=== PATIENT | male | born 1970 | race African-American/Black ===

== ENCOUNTER 2019-03-09 19:01 | Inpatient (IN) | payer OTHER ==
[~2019-03-09] VITALS: Ht 180.3 cm; Wt 82.6 kg
[2019-03-09] MEDS ORDERED: SODIUM CHLORIDE 0.9% 1000ML BAG (SEPSIS BOLUS) IV ONE (19:45)
[2019-03-09] MEDS ORDERED: ENALAPRIL 2.5MG/2ML VIAL 2ML IV ONE (19:45)
[2019-03-09] MEDS ORDERED: INSULIN REGULAR (DRIP) 100 UNITS in SODIUM CHLORIDE 0.9% 100 ML IV ONE ×2 (19:45→21:15)
[2019-03-09] MEDS ORDERED: NICARDIPINE 40MG/200ML PREMIX 200 ML IV STA (19:49)
[2019-03-09] MEDS ORDERED: VECURONIUM BROMIDE 10 MG/VIAL IV ONE (19:57)
[2019-03-09] MEDS ORDERED: SODIUM CHLORIDE 0.9% 10ML VIAL ONE (19:57)
[2019-03-09] MEDS ORDERED: ETOMIDATE 2MG/ML 10ML VIAL IV ONE (19:57)
[2019-03-09] MEDS ORDERED: PROPOFOL 10MG/ML 100ML 100 ML IV ONE (20:00)
[2019-03-09] MEDS ORDERED: MIDAZOLAM HCL 50 MG in DEXTROSE 5% WATER 40 ML IV ONE (20:00)
[2019-03-09] MEDS ORDERED: ROCURONIUM BROMIDE 10MG/ML VIAL 5ML IV ONE (20:00)
[2019-03-09 20:11] LABS: HEMATOCRIT. 42.2 % (42.0-52.0); HEMOGLOBIN. 12.6 g/dL (14.0-18.0); MEAN CORPUSCULAR HEMOGLOBIN 32.6 pg (28.0-32.0); MEAN PLATELET VOLUME 9.9 fl (7.4-10.4); PLATELET 243 x1000/uL (130-400); RED BLOOD CELL COUNT 3.87 mill/uL (4.7-6.1); RED CELL DISTRIBUTION WIDTH 15.7 % (11.6-14.6)
[2019-03-09 20:16] LABS: CHLORIDE 84 mEq/L (98-107); PROTHROMBIN TIME 10.4 sec (9.6-11.0)
[2019-03-09 20:22] LABS: ETHANOL BLOOD < 10 mg/dL
[2019-03-09 20:27] LABS: BETA HYDROXYBUTYRATE 7.5 mMol/L (0.0-0.3)
[2019-03-09 20:46] LABS: PLATELET ESTIMATE NORMAL
[2019-03-09 20:53] LABS: BG BASE EXCESS -17.2 mmol/L (-2.0-2.0); BG CARBOXYHEMOGLOBIN 0.5 % (0.5-1.5); BG FRACTION INSPIRED OXYGEN 50; BG METHEMOGLOBIN 0.5 % (0.0-1.5); BG PH 7.085 (7.350-7.450); BG PO2 210.9 mmHg (75.0-100.0); BG SAMPLE SITE RIGHT RADIAL; BG TIDAL VOLUME(mL) 500 mL; BG VENT MODE VENT - A/C; BG VENT RATE 16 set
[2019-03-09] MEDS ORDERED: SODIUM CHLORIDE 0.9% 1,000 ML IV SCH (21:18)
[2019-03-09] MEDS ORDERED: IPRATROPIUM/ALBUTEROL 0.5-3(2.5)MG/3ML NEB INH PRN (21:30)
[2019-03-09] MEDS ORDERED: INSULIN REGULAR (DRIP) 100 UNITS in SODIUM CHLORIDE 0.9% 100 ML IV SCH (21:30)
[2019-03-09] MEDS ORDERED: PIPERACILLIN/TAZ 3.375G PREMIX 50 ML IV ONE (21:30)
[2019-03-09] MEDS ORDERED: ONDANSETRON HCL 4MG/2ML INJ IV PRN (21:30)
[2019-03-09 22:11] LABS: CLARITY URINE CLEAR (CLEAR); COLOR URINE YELLOW (YELLOW); KETONES URINE 2+ (NEGATIVE); LEUKOCYTE ESTERASE URINE NEGATIVE (NEGATIVE); NITRITE URINE NEGATIVE (NEGATIVE); OCCULT BLOOD URINE 2+ (NEGATIVE); PROTEIN URINE 3+ (NEGATIVE); SPECIFIC GRAVITY URINE 1.021 (1.005-1.030); UROBILINOGEN URINE 0.2 E.U./dL (0.2-1.0)
[2019-03-09 22:17] LABS: PHOSPHORUS 8.6 mg/dL (2.5-4.9)
[2019-03-09 22:21] LABS: *AMPHETAMINES SCREEN URINE NEGATIVE (NEGATIVE)
[2019-03-09 22:22] LABS: *BARBITURATES SCREEN URINE NEGATIVE (NEGATIVE); *BENZODIAZEPINES SCREEN URINE NEGATIVE (NEGATIVE); *COCAINE SCREEN URINE NEGATIVE (NEGATIVE); CANNABINOID URINE SCREEN PRESUMTIVE POSITIVE (NEGATIVE); METHADONE URINE SCREEN NEGATIVE (NEGATIVE); OPIATES URINE SCREEN NEGATIVE (NEGATIVE); PHENCYCLIDINE URINE SCREEN NEGATIVE (NEGATIVE)
[2019-03-10] VITALS (34 sets, daily range): BP systolic 117–159; BP diastolic 57–93
[2019-03-10] MEDS ORDERED: PIPERACILLIN/TAZ 2.25G PREMIX 50 ML IV NR (01:00)
[2019-03-10] MEDS ORDERED: VANCOMYCIN 1500MG in DEXTROSE 5% WATER 250ML IV NR (02:00)
[2019-03-10 03:52] LABS: HEMATOCRIT. 34.8 % (42.0-52.0); HEMOGLOBIN. 11.5 g/dL (14.0-18.0); MEAN CORPUSCULAR HEMOGLOBIN 32.1 pg (28.0-32.0); MEAN CORPUSCULAR VOLUME 97.2 fL (80.0-94.0); MEAN PLATELET VOLUME 9.5 fl (7.4-10.4); PLATELET 247 x1000/uL (130-400); RED BLOOD CELL COUNT 3.58 mill/uL (4.7-6.1); RED CELL DISTRIBUTION WIDTH 14.2 % (11.6-14.6)
[2019-03-10 04:08] LABS: CREATINE KINASE MB FRACTION 16.4 ng/mL (0.5-3.6)
[2019-03-10 05:36] LABS: PLATELET ESTIMATE NORMAL
[2019-03-10] MEDS ORDERED: PIPERACILLIN/TAZ 3.375G PREMIX 50 ML IV SCH (06:00)
[2019-03-10] MEDS: SODIUM CHL 0.9% + KCL 20MEQ/L 1,000 ML IV SCH ×3 (06:30→21:39)
[2019-03-10] MEDS ORDERED: INSULIN R (DRIP) 100 UNITS in SODIUM CHLORIDE 0.9% 100ML IV ONE (06:30)
[2019-03-10] MEDS ORDERED: NICARDIPINE 40MG/200ML PREMIX 200 ML IV SCH ×2 (07:15→08:15)
[2019-03-10] MEDS ORDERED: PIPERACILLIN/TAZ 2.25G PREMIX 50 ML IV SCH (09:00)
[2019-03-10] MEDS ORDERED: NICARDIPINE 50 MG in SODIUM CHLORIDE 0.9% 230 ML IV SCH (09:00)
[2019-03-10] MEDS: IPRATROPIUM/ALBUTEROL 0.5-3(2.5)MG/3ML NEB HHN SCH ×3 (09:10→21:02)
[2019-03-10] MEDS ORDERED: PROPOFOL 10MG/ML 100ML 100 ML IV SCH (09:14)
[2019-03-10] MEDS: BLOOD SUGAR DIAGNOSTIC STRIP TEST SCH ×14 (09:30→23:17)
[2019-03-10] MEDS ORDERED: DEXTROSE 50% WATER 50ML SYRINGE IV PRN ×2 (09:30)
[2019-03-10 09:37] LABS: BG BASE EXCESS -0.3 mmol/L (-2.0-2.0); BG CARBOXYHEMOGLOBIN 0.4 % (0.5-1.5); BG DEOXYHEMOGLOBIN 1.1 % (0.0-5.0); BG FRACTION INSPIRED OXYGEN 50; BG METHEMOGLOBIN 0.4 % (0.0-1.5); BG OXYGEN SATURATION 98.9 % (92.0-98.5); BG OXYHEMOGLOBIN 98.1 % (94.0-97.0); BG PCO2 33.1 mmHg (35.0-45.0); BG PH 7.459 (7.350-7.450); BG PO2 147.3 mmHg (75.0-100.0); BG SAMPLE SITE RIGHT RADIAL; BG TIDAL VOLUME(mL) 500 mL; BG TOTAL HEMOGLOBIN 11.9 g/dL (12.0-18.0); BG VENT MODE VENT - A/C; BG VENT RATE 16 set
[2019-03-10] MEDS: INSULIN REGULAR (DRIP) 100 UNITS in SODIUM CHLORIDE 0.9% 99 ML IV SCH (12:31)
[2019-03-10] MEDS ORDERED: LIDOCAINE HCL 1% 20ML VIAL (Pyxis) INJ ONE (12:35)
[2019-03-10 13:21] LABS: HEPATITIS B SURFACE AB 4.9 mIU/mL
[2019-03-10 13:32] LABS: HEPATITIS B SURFACE ANTIGEN NEGATIVE
[2019-03-10] MEDS ORDERED: MIDAZOLAM HCL 100 MG in DEXT 5% WATER 80 ML IV PRN (13:45)
[2019-03-10] MEDS: PANTOPRAZOLE SODIUM 40 MG/VIAL IV SCH (16:00)
[2019-03-10] MEDS: PIPERACILLIN/TAZ 2.25G PREMIX 50 ML IV SCH (21:18)
[2019-03-10] MEDS: FENTANYL CITRATE/PF 500 MCG in SODIUM CHLORIDE 0.9% 40 ML IV PRN (22:00)
[2019-03-11] VITALS (71 sets, daily range): BP systolic 107–170; BP diastolic 59–94
[2019-03-11] MEDS: BLOOD SUGAR DIAGNOSTIC STRIP TEST SCH ×12 (00:05→18:03)
[2019-03-11] MEDS: IPRATROPIUM/ALBUTEROL 0.5-3(2.5)MG/3ML NEB HHN SCH ×4 (01:44→21:01)
[2019-03-11] MEDS: PIPERACILLIN/TAZ 2.25G PREMIX 50 ML IV SCH ×4 (02:44→20:38)
[2019-03-11] MEDS: SODIUM CHL 0.9% + KCL 20MEQ/L 1,000 ML IV SCH (04:47)
[2019-03-11 05:56] LABS: BASOPHILS % 0.6 % (0.0-2.0); EOSINOPHILS % 0.1 % (0.0-5.0); HEMATOCRIT. 29.9 % (42.0-52.0); HEMOGLOBIN. 10.1 g/dL (14.0-18.0); LYMPHOCYTES % 17.4 % (20.0-50.0); MEAN CORPUSCULAR HEMOGLOBIN 32.7 pg (28.0-32.0); MEAN CORPUSCULAR VOLUME 96.9 fL (80.0-94.0); MEAN PLATELET VOLUME 9.1 fl (7.4-10.4); MONOCYTES % 6.9 % (2.0-8.0); PLATELET 162 x1000/uL (130-400); RED BLOOD CELL COUNT 3.09 mill/uL (4.7-6.1); RED CELL DISTRIBUTION WIDTH 14.6 % (11.6-14.6)
[2019-03-11 08:24] LABS: BG BASE EXCESS -6.6 mmol/L (-2.0-2.0); BG CARBOXYHEMOGLOBIN 0.3 % (0.5-1.5); BG DEOXYHEMOGLOBIN 1.5 % (0.0-5.0); BG FRACTION INSPIRED OXYGEN 40; BG HCO3 ACT 17.9 mmol/L (22.0-26.0); BG METHEMOGLOBIN 0.1 % (0.0-1.5); BG OXYGEN SATURATION 98.5 % (92.0-98.5); BG OXYHEMOGLOBIN 98.1 % (94.0-97.0); BG PCO2 32.2 mmHg (35.0-45.0); BG PH 7.364 (7.350-7.450); BG PO2 132.4 mmHg (75.0-100.0); BG SAMPLE SITE RIGHT RADIAL; BG TIDAL VOLUME(mL) 500 mL; BG TOTAL HEMOGLOBIN 9.3 g/dL (12.0-18.0); BG VENT MODE VENT - A/C; BG VENT RATE 16 set
[2019-03-11] MEDS: PANTOPRAZOLE SODIUM 40 MG/VIAL IV SCH (08:33)
[2019-03-11] MEDS: DEXT 5%/0.45% NACL 1000ML 1,000 ML IV SCH ×2 (08:34→22:19)
[2019-03-11] MEDS: INSULIN REGULAR (DRIP) 100 UNITS in SODIUM CHLORIDE 0.9% 99 ML IV SCH (08:53)
[2019-03-11] MEDS: INSULIN GLARGINE UD 100 UNITS/ML SYR SUBCUT SCH (10:15)
[2019-03-11] MEDS: DILTIAZEM HCL 60MG TABLET NG SCH ×4 (12:00→18:14)
[2019-03-11] MEDS: FENTANYL CITRATE/PF 500 MCG in SODIUM CHLORIDE 0.9% 40 ML IV PRN ×2 (12:08→18:48)
[2019-03-11] MEDS ORDERED: BLOOD SUGAR DIAGNOSTIC STRIP TEST SCH (20:00)
[2019-03-11] MEDS ORDERED: VANCOMYCIN 500 MG PREMIX 100 ML IV NR (21:45)
[2019-03-12] VITALS (65 sets, daily range): BP systolic 70–236; BP diastolic 25–131
[2019-03-12] MEDS: IPRATROPIUM/ALBUTEROL 0.5-3(2.5)MG/3ML NEB HHN SCH ×4 (01:18→20:00)
[2019-03-12] MEDS: DILTIAZEM HCL 60MG TABLET NG SCH ×4 (01:45→17:41)
[2019-03-12] MEDS: FENTANYL CITRATE/PF 500 MCG in SODIUM CHLORIDE 0.9% 40 ML IV PRN ×2 (01:48→07:07)
[2019-03-12] MEDS ORDERED: BLOOD SUGAR DIAGNOSTIC STRIP TEST SCH ×2 (02:00)
[2019-03-12] MEDS: PIPERACILLIN/TAZ 2.25G PREMIX 50 ML IV SCH ×4 (02:19→21:51)
[2019-03-12] MEDS: BLOOD SUGAR DIAGNOSTIC STRIP TEST SCH ×14 (03:11→21:52)
[2019-03-12 05:51] LABS: HEMATOCRIT. 28.8 % (42.0-52.0); HEMOGLOBIN. 9.5 g/dL (14.0-18.0); MEAN CORPUSCULAR HEMOGLOBIN 32.4 pg (28.0-32.0); MEAN CORPUSCULAR VOLUME 97.9 fL (80.0-94.0); MEAN PLATELET VOLUME 9.1 fl (7.4-10.4); PLATELET 164 x1000/uL (130-400); RED BLOOD CELL COUNT 2.94 mill/uL (4.7-6.1); RED CELL DISTRIBUTION WIDTH 14.8 % (11.6-14.6)
[2019-03-12] MEDS: INSULIN REGULAR (DRIP) 100 UNITS in SODIUM CHLORIDE 0.9% 99 ML IV SCH (07:25)
[2019-03-12] MEDS: PANTOPRAZOLE SODIUM 40 MG/VIAL IV SCH (09:04)
[2019-03-12 09:23] LABS: NUCLEATED RED BLOOD CELLS 1 /100 WBC; PLATELET ESTIMATE NORMAL
[2019-03-12 09:49] LABS: BG BASE EXCESS -1.2 mmol/L (-2.0-2.0); BG CARBOXYHEMOGLOBIN 0.1 % (0.5-1.5); BG DEOXYHEMOGLOBIN 1.4 % (0.0-5.0); BG FRACTION INSPIRED OXYGEN 40; BG METHEMOGLOBIN 0.1 % (0.0-1.5); BG OXYGEN SATURATION 98.6 % (92.0-98.5); BG OXYHEMOGLOBIN 98.4 % (94.0-97.0); BG PCO2 42.2 mmHg (35.0-45.0); BG PH 7.373 (7.350-7.450); BG PO2 140.1 mmHg (75.0-100.0); BG SAMPLE SITE RIGHT RADIAL; BG TIDAL VOLUME(mL) 500 mL; BG TOTAL HEMOGLOBIN 9.9 g/dL (12.0-18.0); BG VENT MODE VENT - A/C; BG VENT RATE 16 set
[2019-03-12] MEDS: INSULIN GLARGINE UD 100 UNITS/ML SYR SUBCUT SCH (11:04)
[2019-03-12] MEDS ORDERED: HYDROMORPHONE HCL/PF 2MG/ML CPJ IV NR (12:00)
[2019-03-12] MEDS ORDERED: RACEPINEPHRINE 2.25% 0.5ML NEB VIAL ONE (12:07)
[2019-03-12] MEDS ORDERED: RACEPINEPHRINE 2.25% 0.5ML NEB VIAL HHN PRN (12:15)
[2019-03-12] MEDS ORDERED: RACEPINEPHRINE 2.25% 0.5ML NEB VIAL HHN NR (12:15)
[2019-03-12] MEDS: LORAZEPAM 2MG/ML CPJ IV PRN ×3 (12:26→21:51)
[2019-03-12 13:19] LABS: BG BASE EXCESS -2.8 mmol/L (-2.0-2.0); BG CARBOXYHEMOGLOBIN 0.2 % (0.5-1.5); BG DEOXYHEMOGLOBIN 3.7 % (0.0-5.0); BG FRACTION INSPIRED OXYGEN 100; BG HCO3 ACT 22.4 mmol/L (22.0-26.0); BG METHEMOGLOBIN 0.5 % (0.0-1.5); BG OXYGEN SATURATION 96.3 % (92.0-98.5); BG OXYHEMOGLOBIN 95.6 % (94.0-97.0); BG PCO2 40.3 mmHg (35.0-45.0); BG PH 7.362 (7.350-7.450); BG PO2 86.1 mmHg (75.0-100.0); BG SAMPLE SITE RIGHT RADIAL; BG TOTAL HEMOGLOBIN 10.5 g/dL (12.0-18.0); BG VENT MODE MASK - NRB
[2019-03-12] MEDS: DILTIAZEM HCL 30MG TABLET NG SCH ×2 (14:45→14:47)
[2019-03-12] MEDS: FLUCONAZOLE 100MG TABLET PO SCH (14:52)
[2019-03-12] MEDS ORDERED: VANCOMYCIN 500 MG PREMIX 100 ML IV NR (15:00)
[2019-03-12] MEDS ORDERED: DEXTROSE 50% WATER 50ML SYRINGE IV PRN (15:30)
[2019-03-12] MEDS: NICARDIPINE 50 MG in SODIUM CHLORIDE 0.9% 230 ML IV SCH ×2 (16:48→22:13)
[2019-03-12] MEDS ORDERED: NICARDIPINE 40MG/200ML PREMIX 200 ML IV SCH (17:00)
[2019-03-12] MEDS ORDERED: HYDRALAZINE 20MG/ML VIAL IV NR (17:30)
[2019-03-12] MEDS: ASPIRIN 81MG TABLET NG SCH (17:41)
[2019-03-12] MEDS: NITROGLYCERIN OINT 1GM/INCH UDPKT TD SCH ×2 (17:50→21:52)
[2019-03-12] MEDS: INSULIN LISPRO 100 UNITS/ML SUBCUT SCH ×2 (18:15→21:53)
[2019-03-12 18:48] LABS: BG BASE EXCESS -3.8 mmol/L (-2.0-2.0); BG CARBOXYHEMOGLOBIN 0.3 % (0.5-1.5); BG DEOXYHEMOGLOBIN 0.8 % (0.0-5.0); BG FRACTION INSPIRED OXYGEN 100; BG HCO3 ACT 19.9 mmol/L (22.0-26.0); BG METHEMOGLOBIN 0.3 % (0.0-1.5); BG OXYGEN SATURATION 99.2 % (92.0-98.5); BG OXYHEMOGLOBIN 98.6 % (94.0-97.0); BG PCO2 31.5 mmHg (35.0-45.0); BG PH 7.419 (7.350-7.450); BG PO2 172.7 mmHg (75.0-100.0); BG SAMPLE SITE RIGHT RADIAL; BG TOTAL HEMOGLOBIN 10.7 g/dL (12.0-18.0); BG VENT MODE MASK - NRB
[2019-03-12] MEDS: RISPERIDONE 1MG TABLET PO SCH (21:52)
[2019-03-12] MEDS: ACETAMINOPHEN 650MG/20.3ML UDC PO PRN (23:23)
[2019-03-13] VITALS (58 sets, daily range): BP systolic 94–191; BP diastolic 50–112
[2019-03-13] MEDS: DILTIAZEM HCL 60MG TABLET NG SCH ×5 (01:06→18:18)
[2019-03-13] MEDS: LORAZEPAM 2MG/ML CPJ IV PRN (01:28)
[2019-03-13] MEDS: IPRATROPIUM/ALBUTEROL 0.5-3(2.5)MG/3ML NEB HHN SCH ×4 (01:52→20:58)
[2019-03-13] MEDS: PIPERACILLIN/TAZ 2.25G PREMIX 50 ML IV SCH ×4 (04:07→20:01)
[2019-03-13 05:41] LABS: BASOPHILS % 0.3 % (0.0-2.0); EOSINOPHILS % 0.8 % (0.0-5.0); HEMATOCRIT. 27.7 % (42.0-52.0); HEMOGLOBIN. 9.2 g/dL (14.0-18.0); LYMPHOCYTES % 12.4 % (20.0-50.0); MEAN CORPUSCULAR HEMOGLOBIN 32.5 pg (28.0-32.0); MEAN CORPUSCULAR VOLUME 98.1 fL (80.0-94.0); MEAN PLATELET VOLUME 9.5 fl (7.4-10.4); MONOCYTES % 6.3 % (2.0-8.0); NEUTROPHILS % 80.2 % (40.0-76.0); PLATELET 145 x1000/uL (130-400); RED BLOOD CELL COUNT 2.82 mill/uL (4.7-6.1); RED CELL DISTRIBUTION WIDTH 14.8 % (11.6-14.6)
[2019-03-13] MEDS: NITROGLYCERIN OINT 1GM/INCH UDPKT TD SCH ×3 (06:50→21:22)
[2019-03-13] MEDS: BLOOD SUGAR DIAGNOSTIC STRIP TEST SCH ×13 (08:20→23:55)
[2019-03-13 08:21] LABS: BG BASE EXCESS -12.1 mmol/L (-2.0-2.0); BG CARBOXYHEMOGLOBIN 0.3 % (0.5-1.5); BG DEOXYHEMOGLOBIN 0.5 % (0.0-5.0); BG FRACTION INSPIRED OXYGEN 99.8; BG HCO3 ACT 13.3 mmol/L (22.0-26.0); BG METHEMOGLOBIN 0.3 % (0.0-1.5); BG OXYGEN SATURATION 99.5 % (92.0-98.5); BG OXYHEMOGLOBIN 98.9 % (94.0-97.0); BG PCO2 28.7 mmHg (35.0-45.0); BG PH 7.284 (7.350-7.450); BG PO2 198.4 mmHg (75.0-100.0); BG SAMPLE SITE RIGHT BRACHIAL; BG TOTAL HEMOGLOBIN 9.2 g/dL (12.0-18.0); BG VENT MODE MASK - NRB
[2019-03-13] MEDS ORDERED: DEXTROSE 50% WATER 50ML SYRINGE IV PRN ×3 (08:45→17:45)
[2019-03-13] MEDS ORDERED: SODIUM BICARBONATE 8.4% 1 MEQ/ML 50ML SYR IV NR (08:45)
[2019-03-13] MEDS ORDERED: INSULIN REGULAR (DRIP) 100 UNITS in SODIUM CHLORIDE 0.9% 99 ML IV PRN (09:00)
[2019-03-13] MEDS: FLUCONAZOLE 100MG TABLET PO SCH (09:19)
[2019-03-13] MEDS: INSULIN GLARGINE UD 100 UNITS/ML SYR SUBCUT SCH (09:19)
[2019-03-13] MEDS: ASPIRIN 81MG TABLET NG SCH (09:20)
[2019-03-13] MEDS: PANTOPRAZOLE 40MG DR TABLET PO SCH (11:30)
[2019-03-13] MEDS: NICARDIPINE 50 MG in SODIUM CHLORIDE 0.9% 230 ML IV SCH ×2 (13:00→20:01)
[2019-03-13] MEDS ORDERED: INSULIN GLARGINE UD 100 UNITS/ML SYR SUBCUT NR (18:00)
[2019-03-13] MEDS: INSULIN LISPRO 100 UNITS/ML SUBCUT SCH ×3 (18:00→23:55)
[2019-03-13] MEDS: RISPERIDONE 1MG TABLET PO SCH (20:06)
[2019-03-13] MEDS: ACETAMINOPHEN 650MG/20.3ML UDC PO PRN (20:28)
[2019-03-13] MEDS ORDERED: VANCOMYCIN 500 MG PREMIX 100 ML IV SCH (21:00)
[2019-03-14] VITALS (87 sets, daily range): BP systolic 93–174; BP diastolic 51–112
[2019-03-14] MEDS: PIPERACILLIN/TAZ 2.25G PREMIX 50 ML IV SCH ×4 (02:09→20:53)
[2019-03-14] MEDS: IPRATROPIUM/ALBUTEROL 0.5-3(2.5)MG/3ML NEB HHN SCH ×4 (03:27→21:00)
[2019-03-14] MEDS: NICARDIPINE 50 MG in SODIUM CHLORIDE 0.9% 230 ML IV SCH ×2 (04:56→16:57)
[2019-03-14] MEDS: BLOOD SUGAR DIAGNOSTIC STRIP TEST SCH ×4 (05:32→23:48)
[2019-03-14] MEDS: DILTIAZEM HCL 60MG TABLET NG SCH ×4 (05:37→23:33)
[2019-03-14] MEDS: NITROGLYCERIN OINT 1GM/INCH UDPKT TD SCH ×3 (05:38→21:45)
[2019-03-14] MEDS: INSULIN LISPRO 100 UNITS/ML SUBCUT SCH ×8 (05:39→23:54)
[2019-03-14 05:43] LABS: BASOPHILS % 0.4 % (0.0-2.0); EOSINOPHILS % 1.1 % (0.0-5.0); HEMATOCRIT. 26.9 % (42.0-52.0); LYMPHOCYTES % 11.3 % (20.0-50.0); MEAN CORPUSCULAR HEMOGLOBIN 32.8 pg (28.0-32.0); MEAN CORPUSCULAR VOLUME 97.7 fL (80.0-94.0); MEAN PLATELET VOLUME 9.4 fl (7.4-10.4); MONOCYTES % 6.3 % (2.0-8.0); NEUTROPHILS % 80.9 % (40.0-76.0); PLATELET 176 x1000/uL (130-400); RED BLOOD CELL COUNT 2.76 mill/uL (4.7-6.1); RED CELL DISTRIBUTION WIDTH 14.9 % (11.6-14.6)
[2019-03-14] MEDS ORDERED: POTASSIUM CHLORIDE 20MEQ/PACKET PO NR ×2 (08:15→16:00)
[2019-03-14] MEDS: FLUCONAZOLE 100MG TABLET PO SCH (09:32)
[2019-03-14] MEDS: ASPIRIN 81MG TABLET NG SCH (09:32)
[2019-03-14] MEDS: PANTOPRAZOLE 40MG DR TABLET PO SCH (09:32)
[2019-03-14 09:57] LABS: BG BASE EXCESS 3.5 mmol/L (-2.0-2.0); BG CARBOXYHEMOGLOBIN 0.3 % (0.5-1.5); BG DEOXYHEMOGLOBIN 4.3 % (0.0-5.0); BG HCO3 ACT 26.1 mmol/L (22.0-26.0); BG METHEMOGLOBIN 0.5 % (0.0-1.5); BG OXYGEN SATURATION 95.7 % (92.0-98.5); BG OXYHEMOGLOBIN 94.9 % (94.0-97.0); BG PH 7.529 (7.350-7.450); BG PO2 74.5 mmHg (75.0-100.0); BG SAMPLE SITE RIGHT BRACHIAL; BG TOTAL HEMOGLOBIN 9.4 g/dL (12.0-18.0); BG VENT MODE NASAL CANNULA
[2019-03-14] MEDS: LORAZEPAM 2MG/ML CPJ IV PRN ×2 (10:16→15:50)
[2019-03-14] MEDS ORDERED: LORAZEPAM 2MG/ML CPJ IM SCH (10:45)
[2019-03-14] MEDS ORDERED: LORAZEPAM 2MG/ML CPJ IV PRN (10:45)
[2019-03-14] MEDS ORDERED: POTASSIUM CHLORIDE 20MEQ TABLET SR PO SCH (16:00)
[2019-03-14] MEDS: RISPERIDONE 1MG TABLET PO SCH (20:53)
[2019-03-14] MEDS: INSULIN GLARGINE UD 100 UNITS/ML SYR SUBCUT SCH (21:48)
[2019-03-15] VITALS (92 sets, daily range): BP systolic 116–198; BP diastolic 54–144
[2019-03-15] MEDS: NICARDIPINE 50 MG in SODIUM CHLORIDE 0.9% 230 ML IV SCH ×2 (00:39→14:36)
[2019-03-15] MEDS: PIPERACILLIN/TAZ 2.25G PREMIX 50 ML IV SCH ×4 (01:34→19:31)
[2019-03-15] MEDS: IPRATROPIUM/ALBUTEROL 0.5-3(2.5)MG/3ML NEB HHN SCH ×4 (01:40→19:48)
[2019-03-15 04:58] LABS: BASOPHILS % 1.2 % (0.0-2.0); EOSINOPHILS % 2.1 % (0.0-5.0); HEMATOCRIT. 27.3 % (42.0-52.0); HEMOGLOBIN. 9.3 g/dL (14.0-18.0); MEAN CORPUSCULAR HEMOGLOBIN 32.9 pg (28.0-32.0); MEAN CORPUSCULAR VOLUME 96.9 fL (80.0-94.0); MONOCYTES % 8.5 % (2.0-8.0); NEUTROPHILS % 71.2 % (40.0-76.0); PLATELET 212 x1000/uL (130-400); RED BLOOD CELL COUNT 2.82 mill/uL (4.7-6.1); RED CELL DISTRIBUTION WIDTH 14.7 % (11.6-14.6)
[2019-03-15] MEDS: NITROGLYCERIN OINT 1GM/INCH UDPKT TD SCH ×3 (05:18→22:02)
[2019-03-15] MEDS: DILTIAZEM HCL 60MG TABLET NG SCH ×3 (05:19→19:04)
[2019-03-15] MEDS: BLOOD SUGAR DIAGNOSTIC STRIP TEST SCH ×4 (05:52→23:34)
[2019-03-15] MEDS: INSULIN LISPRO 100 UNITS/ML SUBCUT SCH ×7 (06:00→23:34)
[2019-03-15] MEDS ORDERED: POTASSIUM CHLORIDE 20MEQ/PACKET PO SCH (06:00)
[2019-03-15] MEDS: ASPIRIN 81MG TABLET NG SCH (08:55)
[2019-03-15] MEDS: PANTOPRAZOLE 40MG DR TABLET PO SCH (08:55)
[2019-03-15] MEDS: LOSARTAN POTASSIUM 100 MG TABLET PO SCH (10:19)
[2019-03-15] MEDS: METOPROLOL TARTRATE 50MG TABLET PO SCH (20:45)
[2019-03-15] MEDS: RISPERIDONE 1MG TABLET PO SCH (20:45)
[2019-03-15] MEDS ORDERED: VANCOMYCIN 500 MG PREMIX 100 ML IV NR (21:00)
[2019-03-15] MEDS: LORAZEPAM 2MG/ML CPJ IV PRN (21:45)
[2019-03-15] MEDS: INSULIN GLARGINE UD 100 UNITS/ML SYR SUBCUT SCH (22:03)
[2019-03-15] MEDS: HALOPERIDOL LACTATE 5MG/ML VIAL IM PRN (22:51)
[2019-03-16] VITALS (80 sets, daily range): BP systolic 132–185; BP diastolic 56–117
[2019-03-16] MEDS: DILTIAZEM HCL 60MG TABLET NG SCH ×5 (00:35→23:40)
[2019-03-16] MEDS: LORAZEPAM 2MG/ML CPJ IV PRN ×2 (01:38→21:14)
[2019-03-16] MEDS: PIPERACILLIN/TAZ 2.25G PREMIX 50 ML IV SCH ×4 (01:40→20:20)
[2019-03-16] MEDS: IPRATROPIUM/ALBUTEROL 0.5-3(2.5)MG/3ML NEB HHN SCH ×4 (01:55→19:56)
[2019-03-16] MEDS: CLONIDINE 0.1MG TABLET PO PRN ×2 (03:53→13:40)
[2019-03-16] MEDS: NICARDIPINE 50 MG in SODIUM CHLORIDE 0.9% 230 ML IV SCH ×3 (03:59→21:00)
[2019-03-16 05:32] LABS: BASOPHILS % 0.9 % (0.0-2.0); EOSINOPHILS % 2.4 % (0.0-5.0); HEMATOCRIT. 28.4 % (42.0-52.0); HEMOGLOBIN. 9.4 g/dL (14.0-18.0); LYMPHOCYTES % 15.4 % (20.0-50.0); MEAN CORPUSCULAR HEMOGLOBIN 32.3 pg (28.0-32.0); MEAN CORPUSCULAR VOLUME 97.5 fL (80.0-94.0); MEAN PLATELET VOLUME 9.1 fl (7.4-10.4); MONOCYTES % 8.3 % (2.0-8.0); PLATELET 230 x1000/uL (130-400); RED BLOOD CELL COUNT 2.91 mill/uL (4.7-6.1); RED CELL DISTRIBUTION WIDTH 14.8 % (11.6-14.6)
[2019-03-16] MEDS: BLOOD SUGAR DIAGNOSTIC STRIP TEST SCH ×4 (05:48→23:40)
[2019-03-16] MEDS: NITROGLYCERIN OINT 1GM/INCH UDPKT TD SCH ×3 (05:58→21:49)
[2019-03-16] MEDS: INSULIN LISPRO 100 UNITS/ML SUBCUT SCH ×7 (05:59→23:46)
[2019-03-16] MEDS: PANTOPRAZOLE 40MG DR TABLET PO SCH (08:13)
[2019-03-16] MEDS: METOPROLOL TARTRATE 50MG TABLET PO SCH ×2 (08:14→20:21)
[2019-03-16] MEDS: LOSARTAN POTASSIUM 100 MG TABLET PO SCH (08:14)
[2019-03-16] MEDS: ASPIRIN 81MG TABLET NG SCH (08:14)
[2019-03-16] MEDS: HYDRALAZINE HCL 25MG TABLET PO SCH ×2 (15:59→23:40)
[2019-03-16] MEDS: RISPERIDONE 1MG TABLET PO SCH (21:14)
[2019-03-16] MEDS: INSULIN GLARGINE UD 100 UNITS/ML SYR SUBCUT SCH (21:49)
[2019-03-16] MEDS: CLONIDINE 0.1MG TABLET PO SCH (21:49)
[2019-03-17] VITALS (60 sets, daily range): BP systolic 135–192; BP diastolic 77–109
[2019-03-17] MEDS: HALOPERIDOL LACTATE 5MG/ML VIAL IM PRN ×3 (01:01→19:33)
[2019-03-17] MEDS: IPRATROPIUM/ALBUTEROL 0.5-3(2.5)MG/3ML NEB HHN SCH ×2 (02:01→21:12)
[2019-03-17] MEDS: PIPERACILLIN/TAZ 2.25G PREMIX 50 ML IV SCH ×4 (02:36→20:17)
[2019-03-17] MEDS: CLONIDINE 0.1MG TABLET PO PRN ×2 (04:25→19:41)
[2019-03-17 05:31] LABS: BASOPHILS % 0.6 % (0.0-2.0); EOSINOPHILS % 4.2 % (0.0-5.0); HEMATOCRIT. 27.2 % (42.0-52.0); HEMOGLOBIN. 9.3 g/dL (14.0-18.0); MEAN CORPUSCULAR HEMOGLOBIN 33.5 pg (28.0-32.0); MEAN CORPUSCULAR VOLUME 97.4 fL (80.0-94.0); MEAN PLATELET VOLUME 8.6 fl (7.4-10.4); MONOCYTES % 10.2 % (2.0-8.0); PLATELET 257 x1000/uL (130-400); RED BLOOD CELL COUNT 2.79 mill/uL (4.7-6.1); RED CELL DISTRIBUTION WIDTH 14.7 % (11.6-14.6)
[2019-03-17] MEDS: BLOOD SUGAR DIAGNOSTIC STRIP TEST SCH ×3 (05:46→17:02)
[2019-03-17] MEDS: NITROGLYCERIN OINT 1GM/INCH UDPKT TD SCH ×3 (05:47→21:48)
[2019-03-17] MEDS: CLONIDINE 0.1MG TABLET PO SCH ×3 (05:47→21:47)
[2019-03-17] MEDS: HYDRALAZINE HCL 25MG TABLET PO SCH ×3 (05:48→21:47)
[2019-03-17] MEDS: DILTIAZEM HCL 60MG TABLET NG SCH ×3 (05:48→17:02)
[2019-03-17] MEDS: INSULIN LISPRO 100 UNITS/ML SUBCUT SCH ×6 (05:56→22:00)
[2019-03-17] MEDS: NICARDIPINE 50 MG in SODIUM CHLORIDE 0.9% 230 ML IV SCH (07:00)
[2019-03-17] MEDS: PANTOPRAZOLE 40MG DR TABLET PO SCH (07:50)
[2019-03-17] MEDS: LOSARTAN POTASSIUM 100 MG TABLET PO SCH (09:00)
[2019-03-17] MEDS: METOPROLOL TARTRATE 50MG TABLET PO SCH ×2 (09:00→20:53)
[2019-03-17] MEDS: LORAZEPAM 2MG/ML CPJ IV PRN ×3 (09:14→23:02)
[2019-03-17] MEDS: ASPIRIN 81MG TABLET NG SCH (12:21)
[2019-03-17 18:24] LABS: T4 FREE 1.19 ng/dL (0.76-1.46)
[2019-03-17 18:37] LABS: FOLIC ACID (FOLATE) SERUM 12.9 ng/mL (>5.38)
[2019-03-17] MEDS ORDERED: DIPHENHYDRAMINE 50MG/ML VIAL IV PRN (19:00)
[2019-03-17] MEDS: RISPERIDONE 1MG TABLET PO SCH (20:54)
[2019-03-17] MEDS ORDERED: VANCOMYCIN 500 MG PREMIX 100 ML IV SCH (21:00)
[2019-03-17] MEDS: INSULIN GLARGINE UD 100 UNITS/ML SYR SUBCUT SCH (22:00)
[2019-03-18] VITALS (44 sets, daily range): BP systolic 124–211; BP diastolic 70–128
[2019-03-18] MEDS: DILTIAZEM HCL 60MG TABLET NG SCH ×2 (00:28→05:34)
[2019-03-18] MEDS: BLOOD SUGAR DIAGNOSTIC STRIP TEST SCH ×4 (00:28→17:09)
[2019-03-18] MEDS: IPRATROPIUM/ALBUTEROL 0.5-3(2.5)MG/3ML NEB HHN SCH ×3 (02:35→20:06)
[2019-03-18] MEDS: HYDRALAZINE HCL 25MG TABLET PO SCH (05:34)
[2019-03-18] MEDS: NITROGLYCERIN OINT 1GM/INCH UDPKT TD SCH ×3 (05:34→22:21)
[2019-03-18] MEDS: CLONIDINE 0.1MG TABLET PO SCH (05:34)
[2019-03-18] MEDS: INSULIN LISPRO 100 UNITS/ML SUBCUT SCH ×5 (05:35→17:31)
[2019-03-18 05:40] LABS: BASOPHILS % 0.8 % (0.0-2.0); EOSINOPHILS % 4.9 % (0.0-5.0); HEMATOCRIT. 26.6 % (42.0-52.0); HEMOGLOBIN. 9.2 g/dL (14.0-18.0); LYMPHOCYTES % 26.2 % (20.0-50.0); MEAN CORPUSCULAR HEMOGLOBIN 33.4 pg (28.0-32.0); MEAN CORPUSCULAR VOLUME 97.2 fL (80.0-94.0); MEAN PLATELET VOLUME 8.1 fl (7.4-10.4); MONOCYTES % 12.6 % (2.0-8.0); NEUTROPHILS % 55.5 % (40.0-76.0); PLATELET 297 x1000/uL (130-400); RED BLOOD CELL COUNT 2.74 mill/uL (4.7-6.1); RED CELL DISTRIBUTION WIDTH 14.8 % (11.6-14.6)
[2019-03-18] MEDS ORDERED: POTASSIUM CHLORIDE 20MEQ/PACKET PO NR (07:45)
[2019-03-18] MEDS: ASPIRIN 81MG TABLET NG SCH (08:11)
[2019-03-18] MEDS: LOSARTAN POTASSIUM 100 MG TABLET PO SCH (08:11)
[2019-03-18] MEDS: LANSOPRAZOLE 30MG DR CAPSULE GT SCH (08:11)
[2019-03-18] MEDS: CLOPIDOGREL 75MG TABLET PO SCH (08:11)
[2019-03-18] MEDS: METOPROLOL TARTRATE 50MG TABLET PO SCH (08:12)
[2019-03-18] MEDS: HYDRALAZINE HCL 50MG TABLET PO SCH ×2 (11:34→17:29)
[2019-03-18] MEDS: ENALAPRIL 1.25MG/ML VIAL 1ML IV SCH ×3 (11:35→22:20)
[2019-03-18] MEDS ORDERED: INSULIN LISPRO 100 UNITS/ML SUBCUT NR ×2 (17:20→18:45)
[2019-03-18] MEDS: RISPERIDONE 1MG TABLET PO SCH (20:42)
[2019-03-18] MEDS: HALOPERIDOL LACTATE 5MG/ML VIAL IM PRN (20:43)
[2019-03-18] MEDS ORDERED: INSULIN REGULAR (HUMULIN R) 300UNITS/3ML SUBCUT NR (20:45)
[2019-03-18] MEDS: INSULIN GLARGINE UD 100 UNITS/ML SYR SUBCUT SCH (21:23)
[2019-03-18] MEDS: LORAZEPAM 2MG/ML CPJ IV PRN (22:20)
[2019-03-19] VITALS (47 sets, daily range): BP systolic 116–190; BP diastolic 65–130
[2019-03-19] MEDS: DEXTROSE 50% WATER 50ML SYRINGE IV SCH ×2 (01:20→04:15)
[2019-03-19] MEDS ORDERED: DEXTROSE 50% WATER 50ML SYRINGE IV ONE (01:20)
[2019-03-19] MEDS: HYDRALAZINE HCL 50MG TABLET PO SCH ×5 (01:46→23:37)
[2019-03-19] MEDS: IPRATROPIUM/ALBUTEROL 0.5-3(2.5)MG/3ML NEB HHN SCH ×4 (03:27→21:10)
[2019-03-19] MEDS: INSULIN LISPRO 100 UNITS/ML SUBCUT SCH ×6 (05:47→21:39)
[2019-03-19] MEDS: ENALAPRIL 1.25MG/ML VIAL 1ML IV SCH ×2 (05:47→11:38)
[2019-03-19] MEDS: BLOOD SUGAR DIAGNOSTIC STRIP TEST SCH ×6 (05:47→21:46)
[2019-03-19 05:52] LABS: HEMATOCRIT. 23.4 % (42.0-52.0); MEAN CORPUSCULAR HEMOGLOBIN 33.1 pg (28.0-32.0); MEAN CORPUSCULAR VOLUME 96.4 fL (80.0-94.0); MEAN PLATELET VOLUME 8.1 fl (7.4-10.4); PLATELET 323 x1000/uL (130-400); RED BLOOD CELL COUNT 2.43 mill/uL (4.7-6.1); RED CELL DISTRIBUTION WIDTH 14.4 % (11.6-14.6)
[2019-03-19] MEDS: NITROGLYCERIN OINT 1GM/INCH UDPKT TD SCH ×3 (06:02→21:47)
[2019-03-19] MEDS: LOSARTAN POTASSIUM 100 MG TABLET PO SCH (08:21)
[2019-03-19] MEDS: LANSOPRAZOLE 30MG DR CAPSULE GT SCH (08:21)
[2019-03-19] MEDS: CLOPIDOGREL 75MG TABLET PO SCH (08:21)
[2019-03-19] MEDS: ASPIRIN 81MG TABLET NG SCH (08:21)
[2019-03-19] MEDS ORDERED: HEPARIN SODIUM 1,000 UNIT/1ML VIAL IV ONE (10:00)
[2019-03-19 11:23] LABS: PLATELET ESTIMATE NORMAL
[2019-03-19] MEDS ORDERED: ENALAPRIL 1.25MG/ML VIAL 1ML IV PRN (11:45)
[2019-03-19] MEDS ORDERED: INSULIN LISPRO 100 UNITS/ML SUBCUT SCH (12:50)
[2019-03-19] MEDS ORDERED: BLOOD SUGAR DIAGNOSTIC STRIP TEST SCH (12:50)
[2019-03-19] MEDS: ENALAPRIL 5MG TABLET PO SCH ×2 (15:11→21:00)
[2019-03-19] MEDS: HALOPERIDOL LACTATE 5MG/ML VIAL IM PRN (16:52)
[2019-03-19] MEDS: INSULIN GLARGINE UD 100 UNITS/ML SYR SUBCUT SCH (21:40)
[2019-03-19] MEDS: RISPERIDONE 1MG TABLET PO SCH (21:42)
[2019-03-19] MEDS ORDERED: ENALAPRIL 2.5MG TABLET PO SCH (22:00)
[2019-03-19] MEDS ORDERED: CLONIDINE 0.1MG TABLET PO PRN (23:30)
[2019-03-20] VITALS (11 sets, daily range): BP systolic 122–186; BP diastolic 69–100
[2019-03-20] MEDS: IPRATROPIUM/ALBUTEROL 0.5-3(2.5)MG/3ML NEB HHN SCH ×4 (03:54→20:57)
[2019-03-20] MEDS: LANSOPRAZOLE 30MG DR CAPSULE GT SCH (06:05)
[2019-03-20] MEDS: INSULIN LISPRO 100 UNITS/ML SUBCUT SCH ×4 (06:05→21:35)
[2019-03-20] MEDS: BLOOD SUGAR DIAGNOSTIC STRIP TEST SCH ×4 (06:10→21:10)
[2019-03-20] MEDS: HYDRALAZINE HCL 50MG TABLET PO SCH ×3 (06:17→17:43)
[2019-03-20] MEDS: NITROGLYCERIN OINT 1GM/INCH UDPKT TD SCH ×3 (06:18→21:38)
[2019-03-20 06:36] LABS: HEMATOCRIT. 27.1 % (42.0-52.0); MEAN CORPUSCULAR HEMOGLOBIN 32.2 pg (28.0-32.0); MEAN CORPUSCULAR VOLUME 96.8 fL (80.0-94.0); MEAN PLATELET VOLUME 8.2 fl (7.4-10.4); PLATELET 363 x1000/uL (130-400); RED CELL DISTRIBUTION WIDTH 14.1 % (11.6-14.6)
[2019-03-20 07:46] LABS: PLATELET ESTIMATE NORMAL
[2019-03-20] MEDS ORDERED: POTASSIUM CHLORIDE 20MEQ TABLET SR PO NR (08:30)
[2019-03-20] MEDS: ASPIRIN 81MG TABLET NG SCH (09:51)
[2019-03-20] MEDS: LOSARTAN POTASSIUM 100 MG TABLET PO SCH (09:51)
[2019-03-20] MEDS: CLOPIDOGREL 75MG TABLET PO SCH (09:51)
[2019-03-20] MEDS: ENALAPRIL 5MG TABLET PO SCH ×2 (09:52→21:32)
[2019-03-20 10:22] LABS: INR 1.1; PARTIAL THROMBOPLASTIN TIME 31.8 sec (23.4-31.0); PROTHROMBIN TIME 11.2 sec (9.6-11.0)
[2019-03-20] MEDS ORDERED: SODIUM BICARBONATE 4% (2.4MEQ) 5ML VIAL IV ONE (10:57)
[2019-03-20] MEDS ORDERED: LIDOCAINE HCL 1% 20ML VIAL (Pyxis) INJ ONE (10:57)
[2019-03-20] MEDS: RISPERIDONE 1MG TABLET PO SCH (21:32)
[2019-03-20] MEDS: INSULIN GLARGINE UD 100 UNITS/ML SYR SUBCUT SCH (21:36)
[2019-03-21] VITALS (15 sets, daily range): BP systolic 112–159; BP diastolic 53–112
[2019-03-21] MEDS: IPRATROPIUM/ALBUTEROL 0.5-3(2.5)MG/3ML NEB HHN SCH ×4 (01:53→20:49)
[2019-03-21] MEDS: HYDRALAZINE HCL 50MG TABLET PO SCH ×4 (05:21→17:33)
[2019-03-21] MEDS: NITROGLYCERIN OINT 1GM/INCH UDPKT TD SCH ×3 (06:29→22:25)
[2019-03-21] MEDS: LANSOPRAZOLE 30MG DR CAPSULE GT SCH (06:30)
[2019-03-21] MEDS: BLOOD SUGAR DIAGNOSTIC STRIP TEST SCH ×4 (06:32→21:35)
[2019-03-21] MEDS: INSULIN LISPRO 100 UNITS/ML SUBCUT SCH ×3 (06:35→22:11)
[2019-03-21 07:03] LABS: HEMATOCRIT. 24.6 % (42.0-52.0); HEMOGLOBIN. 8.3 g/dL (14.0-18.0); MEAN CORPUSCULAR HEMOGLOBIN 32.4 pg (28.0-32.0); MEAN CORPUSCULAR VOLUME 95.5 fL (80.0-94.0); MEAN PLATELET VOLUME 8.1 fl (7.4-10.4); PLATELET 382 x1000/uL (130-400); RED BLOOD CELL COUNT 2.57 mill/uL (4.7-6.1); RED CELL DISTRIBUTION WIDTH 14.2 % (11.6-14.6)
[2019-03-21 07:08] LABS: INR 1.1; PARTIAL THROMBOPLASTIN TIME 29.9 sec (23.4-31.0); PROTHROMBIN TIME 10.8 sec (9.6-11.0)
[2019-03-21] MEDS ORDERED: TETRACAINE/BENZOCAINE/BUTAMBEN 20 GM SPRAY MM ONE (09:42)
[2019-03-21] MEDS ORDERED: LIDOCAINE HCL 2% JELLY 5ML ONE (09:43)
[2019-03-21] MEDS ORDERED: FENTANYL CITRATE/PF 50MCG/ML 2ML VIAL ONE (10:09)
[2019-03-21] MEDS ORDERED: MIDAZOLAM HCL 2 MG/2 ML VIAL ONE (10:09)
[2019-03-21 10:47] LABS: PLATELET ESTIMATE NORMAL
[2019-03-21] MEDS: CLOPIDOGREL 75MG TABLET PO SCH (12:48)
[2019-03-21] MEDS: ASPIRIN 81MG TABLET NG SCH (12:48)
[2019-03-21] MEDS: LOSARTAN POTASSIUM 100 MG TABLET PO SCH (12:48)
[2019-03-21] MEDS: ENALAPRIL 5MG TABLET PO SCH ×2 (12:48→21:22)
[2019-03-21] MEDS: RISPERIDONE 1MG TABLET PO SCH (21:21)
[2019-03-21] MEDS: INSULIN GLARGINE UD 100 UNITS/ML SYR SUBCUT SCH (22:12)
[2019-03-22] VITALS (20 sets, daily range): BP systolic 87–146; BP diastolic 49–88
[2019-03-22] MEDS: HYDRALAZINE HCL 50MG TABLET PO SCH ×3 (00:30→17:46)
[2019-03-22] MEDS: IPRATROPIUM/ALBUTEROL 0.5-3(2.5)MG/3ML NEB HHN SCH ×4 (00:48→20:35)
[2019-03-22 05:59] LABS: BASOPHILS % 0.9 % (0.0-2.0); HEMOGLOBIN. 9.1 g/dL (14.0-18.0); LYMPHOCYTES % 21.2 % (20.0-50.0); MEAN CORPUSCULAR HEMOGLOBIN 32.2 pg (28.0-32.0); MEAN PLATELET VOLUME 8.2 fl (7.4-10.4); MONOCYTES % 7.6 % (2.0-8.0); NEUTROPHILS % 68.3 % (40.0-76.0); PLATELET 405 x1000/uL (130-400); RED BLOOD CELL COUNT 2.82 mill/uL (4.7-6.1); RED CELL DISTRIBUTION WIDTH 14.2 % (11.6-14.6)
[2019-03-22] MEDS: NITROGLYCERIN OINT 1GM/INCH UDPKT TD SCH (06:20)
[2019-03-22] MEDS: BLOOD SUGAR DIAGNOSTIC STRIP TEST SCH ×4 (06:26→21:17)
[2019-03-22] MEDS: INSULIN LISPRO 100 UNITS/ML SUBCUT SCH ×4 (06:27→21:38)
[2019-03-22] MEDS: LANSOPRAZOLE 30MG DR CAPSULE GT SCH (06:28)
[2019-03-22] MEDS: ENALAPRIL 5MG TABLET PO SCH ×2 (09:39→21:21)
[2019-03-22] MEDS: LOSARTAN POTASSIUM 100 MG TABLET PO SCH (09:39)
[2019-03-22] MEDS: CLOPIDOGREL 75MG TABLET PO SCH (09:39)
[2019-03-22] MEDS: ASPIRIN 81MG TABLET NG SCH (09:39)
[2019-03-22] MEDS: METOPROLOL TARTRATE 50MG TABLET PO SCH (21:22)
[2019-03-22] MEDS: RISPERIDONE 1MG TABLET PO SCH (21:22)
[2019-03-22] MEDS: INSULIN GLARGINE UD 100 UNITS/ML SYR SUBCUT SCH (21:38)
[2019-03-23] VITALS (11 sets, daily range): BP systolic 115–156; BP diastolic 63–93
[2019-03-23] MEDS: IPRATROPIUM/ALBUTEROL 0.5-3(2.5)MG/3ML NEB HHN SCH ×3 (01:04→14:17)
[2019-03-23] MEDS: HYDRALAZINE HCL 50MG TABLET PO SCH ×2 (06:00→18:30)
[2019-03-23 06:22] LABS: HEMATOCRIT. 27.4 % (42.0-52.0); HEMOGLOBIN. 9.2 g/dL (14.0-18.0); MEAN CORPUSCULAR HEMOGLOBIN 32.4 pg (28.0-32.0); MEAN CORPUSCULAR VOLUME 96.4 fL (80.0-94.0); PLATELET 428 x1000/uL (130-400); RED BLOOD CELL COUNT 2.84 mill/uL (4.7-6.1); RED CELL DISTRIBUTION WIDTH 14.4 % (11.6-14.6)
[2019-03-23] MEDS: BLOOD SUGAR DIAGNOSTIC STRIP TEST SCH ×3 (06:29→17:47)
[2019-03-23] MEDS: INSULIN LISPRO 100 UNITS/ML SUBCUT SCH ×3 (06:50→18:31)
[2019-03-23] MEDS ORDERED: FAMOTIDINE 20MG TABLET PO SCH (09:00)
[2019-03-23] MEDS: METOPROLOL TARTRATE 50MG TABLET PO SCH (09:11)
[2019-03-23] MEDS: CLOPIDOGREL 75MG TABLET PO SCH (09:11)
[2019-03-23] MEDS: LOSARTAN POTASSIUM 100 MG TABLET PO SCH (09:11)
[2019-03-23] MEDS: ASPIRIN 81MG TABLET NG SCH (09:11)
[2019-03-23] MEDS: ENALAPRIL 5MG TABLET PO SCH (09:11)
[2019-03-23 10:20] LABS: PLATELET ESTIMATE INCREASED
[2019-03-25 09:06] LABS: DRVVT LA 60.6 sec (0.0-47.0)
== END 2019-03-23 18:55 | disposition home or self-care (01) | DRG 871 ==
LOC: ER 19:01 → EDBEDREQSVC 20:21 → EDBEDREQ 20:21 → CVICU 21:02 → EDBEDREQ 21:21 → EDBEDREQTM 21:21 → ENRESERV 03-10 06:50 → ER 03-10 08:13 → 3WST 03-19 17:54
PROVIDERS: ADMIT Internal Medicine; ATTEND Internal Medicine
PROC: 5A1945Z Respiratory Ventilation, 24-96 Consecutive Hours (ICD-10-PCS; principal; 2019-03-09)
PROC: 0BH17EZ Insertion of Endotracheal Airway into Trachea, Via Natural or Artificial Opening (ICD-10-PCS; 2019-03-09)
PROC: 5A1D70Z Performance of Urinary Filtration, Intermittent, Less than 6 Hours Per Day (ICD-10-PCS; 2019-03-10)
PROC: 06HY33Z Insertion of Infusion Device into Lower Vein, Percutaneous Approach (ICD-10-PCS; 2019-03-10)
PROC: B54BZZA Ultrasonography of Right Lower Extremity Veins, Guidance (ICD-10-PCS; 2019-03-10)
PROC: 5A1D70Z Performance of Urinary Filtration, Intermittent, Less than 6 Hours Per Day (ICD-10-PCS; 2019-03-13)
PROC: 02HV33Z Insertion of Infusion Device into Superior Vena Cava, Percutaneous Approach (ICD-10-PCS; 2019-03-14)
PROC: B518ZZA Fluoroscopy of Superior Vena Cava, Guidance (ICD-10-PCS; 2019-03-14)
PROC: 5A1D70Z Performance of Urinary Filtration, Intermittent, Less than 6 Hours Per Day (ICD-10-PCS; 2019-03-15)
PROC: 5A1D70Z Performance of Urinary Filtration, Intermittent, Less than 6 Hours Per Day (ICD-10-PCS; 2019-03-17)
PROC: 5A1D70Z Performance of Urinary Filtration, Intermittent, Less than 6 Hours Per Day (ICD-10-PCS; 2019-03-18)
PROC: 5A09357 Assistance with Respiratory Ventilation, Less than 24 Consecutive Hours, Continuous Positive Airway Pressure (ICD-10-PCS; 2019-03-19)
PROC: 0JH63XZ Insertion of Tunneled Vascular Access Device into Chest Subcutaneous Tissue and Fascia, Percutaneous Approach (ICD-10-PCS; 2019-03-20)
PROC: 02HV33Z Insertion of Infusion Device into Superior Vena Cava, Percutaneous Approach (ICD-10-PCS; 2019-03-20)
PROC: B518ZZA Fluoroscopy of Superior Vena Cava, Guidance (ICD-10-PCS; 2019-03-20)
PROC: 5A1D70Z Performance of Urinary Filtration, Intermittent, Less than 6 Hours Per Day (ICD-10-PCS; 2019-03-21)
PROC: 5A1D70Z Performance of Urinary Filtration, Intermittent, Less than 6 Hours Per Day (ICD-10-PCS; 2019-03-22)
PROC: 5A1D70Z Performance of Urinary Filtration, Intermittent, Less than 6 Hours Per Day (ICD-10-PCS; 2019-03-23)
DX: A41.9 Sepsis, unspecified organism (principal); J96.01 Acute respiratory failure with hypoxia; E11.10 Type 2 diabetes mellitus with ketoacidosis without coma; N17.0 Acute kidney failure with tubular necrosis; I21.4 Non-ST elevation (NSTEMI) myocardial infarction; G92 Toxic encephalopathy; I63.9 Cerebral infarction, unspecified; N18.6 End stage renal disease; R65.21 Severe sepsis with septic shock; E87.1 Hypo-osmolality and hyponatremia; I16.1 Hypertensive emergency; M62.82 Rhabdomyolysis; I13.11 Hypertensive heart and chronic kidney disease without heart failure, with stage 5 chronic kidney disease, or end stage renal disease; I42.1 Obstructive hypertrophic cardiomyopathy; I47.1 Supraventricular tachycardia; I48.92 Unspecified atrial flutter; J98.11 Atelectasis; N18.9 Chronic kidney disease, unspecified; E87.5 Hyperkalemia; E11.22 Type 2 diabetes mellitus with diabetic chronic kidney disease; D53.9 Nutritional anemia, unspecified; E78.1 Pure hyperglyceridemia; E78.5 Hyperlipidemia, unspecified; E83.41 Hypermagnesemia; E86.0 Dehydration; I44.1 Atrioventricular block, second degree; R40.2430 Glasgow coma scale score 3-8, unspecified time; E87.6 Hypokalemia; F12.90 Cannabis use, unspecified, uncomplicated; Z78.1 Physical restraint status; Z79.02 Long term (current) use of antithrombotics/antiplatelets; Z79.899 Other long term (current) drug therapy; Z85.528 Personal history of other malignant neoplasm of kidney; Z86.73 Personal history of transient ischemic attack (TIA), and cerebral infarction without residual deficits; Z99.2 Dependence on renal dialysis
CPT/HCPCS: 36415; 36556; 36589; 36600; 70544; 70551; 71045; 76770; 76937; 77001; 80048; 80061; 80202; 80305; 80320; 81400; 81403; 81407; 81479; 82010; 82140; 82375; 82550; 82553; 82575; 82607; 82746; 82805; 82962; 83036; 83605; 83735; 83880; 83930; 83935; 84100; 84145; 84439; 84443; 84478; 84481; 84484; 85044; 85300; 85303; 85306; 85613; 85732; 86147; 86705; 86706; 86803; 87070; 87077; 87340; 92610; 93005; 93306; 93312; 93880; 93970; 94640; 96365; 96375; 97112; 97116; 97162; 97167; 97530; 99291; A6261; C1750; C1752; C1769; C9113; J0360; J1170; J1630; J1642; J1644; J1815; J2060; J2250; J2543; J2704; J3010; J3370; J3480; J3490; J7030; J7050; J7060; J7620; G0480